=== PATIENT | female | born 1960 | race Caucasian/White ===

== ENCOUNTER 2016-10-09 14:58 | Outpatient (CLI) | payer OTHER | END 2016-10-09 15:00 | LOC: LABRHC 14:58 | PROVIDERS: ATTEND Physician Assistant | DX: L02.91 Cutaneous abscess, unspecified (principal) | CPT/HCPCS: 87070; 87186 ==

== ENCOUNTER 2017-04-06 10:46 | Outpatient (CLI) | payer OTHER ==
--- NOTE | 2017-04-09 12:56 | PAIN CLINIC PROGRESS NOTES ---
REASON FOR VISIT: I had the opportunity of following up with Garrett Birch today as an outpatient at [facility]. This is a 56-year-old white female who presents with back and bilateral leg pain. She was treated in 2016 for symptoms of both spinal stenosis and lumbar spondylosis primarily on the left side. She did very well following radiofrequency neurolysis and her back pain resolved for some time. She comes in today with new complaints of low back pain with symptoms radiating into both buttocks and posterior thigh and weakness in her legs. She says the pain is exacerbated by standing, walking, and weightbearing and completely resolved with sitting or lying down, consistent with neurogenic claudication. PHYSICAL EXAMINATION: On exam today, she does have a positive assisted extension and extension rotation finding. She has strength of 5/5 in the lower extremities. Dorsiflexion and plantar flexion of the feet are intact. There is a mildly positive bilateral straight leg raise which reproduces pain in each leg. Reflexes are 2+ and equal in patellar tendon and Achilles tendon. Gait is slightly antalgic. ASSESSMENT: 1. MRI-documented moderate to severe L4-L5 spinal stenosis, now with neurogenic claudication and back pain. 2. History of lumbar spondylosis, previously successfully treated with facet medial branch blocks and radiofrequency neurolysis. PLAN: As I think her symptoms are primarily consistent with neurogenic claudication and spinal stenosis, I have recommended a trial lumbar epidural steroid injection to begin with. She has apparently changed insurance products and will need to pre-authorization. I have offered her Tramadol for control of the symptoms in the interim. We will follow her up at her convenience next month. cc: Dr. Jitendra SHANKAR
== END 2017-04-06 10:47 ==
LOC: OUT 10:46
PROVIDERS: ATTEND Anesthesiology Pain Medicine
DX: M48.061 Spinal stenosis, lumbar region without neurogenic claudication (principal); M47.26 Other spondylosis with radiculopathy, lumbar region
CPT/HCPCS: 99213

== ENCOUNTER 2018-12-27 11:58 | Emergency (ER) | payer OTHER ==
[2018-12-27 12:04] VITALS: BP 119/77
--- NOTE | 2018-12-27 12:27 | ED Physician Documentation ---
Fall - HISTORIAN Historian: patient - HPI Stated Complaint: Fall Chief Complaint: Fall Additional Information: Patient presents to ED via EMS after falling. Patient states she tripped over uneven sidewalk at [facility], falling onto her left face and left side. She complains of left face and left lateral rib pain. She denies loss of consciousness. She is not on blood thinners. Patient has small skin tear to left elbow. Onset: just prior to arrival Where: other ([facility]) Context: tripped r: mild Associated Symptoms:: no loss of consciousness Location of Pain/Injury: face (left cheek), chest (left lateral), upper extremity (left elbow) Injury to Right Extremity: none Injury to Left Extremity: elbow (skin tear) - ROS CONST: no problems NEURO: denies: dizziness MS/SKIN/LYMPH: denies: weakness EYES/ENT: none CVS/RESP: none GI/: denies: nausea, vomiting - PAST HX Past History: none Allergies/Adverse Reactions: Allergies Allergy/AdvReac Type Severity Reaction Status Date / Time No Known Drug Allergies Allergy Verified 12/27/18 13:13 Home Medications: Ambulatory Orders Medication Instructions Recorded Methylprednisolone [Medrol] 4 mg PO DIRECTED #1 tab.ds.pk 12/27/18 - SOCIAL HX Smoking History: non-smoker Alcohol Use: none Drug Use: none - FAMILY HX Family History: none - VITAL SIGNS Vital Signs: Vital Signs Temp Pulse Resp BP Pulse Ox 98.2 F 70 15 119/77 97 12/27/18 11:58 12/27/18 11:58 12/27/18 11:58 12/27/18 11:58 12/27/18 11:58 - REVIEWED ASSESSMENTS Nursing Assessment Reviewed: Yes Vitals Reviewed: Yes Progress - Progress Progress: 1256 Patient now states her right hand is hurting. Declines pain medication at this time. ED Results Lab/Radiology - Radiology Radiology Impressions: Report Submission Date: Dec 27, 2018 1:06:46 PM CDT Patient Study Name: ARIELLA COLON Date: Dec 27, 2018 12:01:58 PM CDT Modality Type: DX Gender: F Description: FACIAL BONES 3 VIEWS OR MORE : 56 Institution: [facility] Physician: NICHOLAS JOHNSON Exam: Facial bones. History: Fall. [place], [place], Marv's and lateral projection of the facial bones are submitted. No signs of fracture or dislocation is identified. No nasal septal deviation is seen. No soft tissue abnormalities are identified. Impression: No bony abnormality is detected on this study. Electronically signed on Dec 27, 2018 1:06:46 PM CDT by: Marcin Acevedo Report Submission Date: Dec 27, 2018 1:07:53 PM CDT Patient Study Name: ARIELLA COLON Date: Dec 27, 2018 12:01:58 PM CDT Modality Type: DX Gender: F Description: RIBS UNILAT 2 VIEWS : 56 Institution: [facility] Physician: NICHOLAS JOHNSON Exam: Left ribs. History: Fall. AP and oblique views of the left hemithorax are submitted. No signs of fracture or dislocation is seen. No pleural or periosteal reaction is seen. No pneumothorax is identified. Impression: No bony abnormality to the left hemithorax is identified. Electronically signed on Dec 27, 2018 1:07:53 PM CDT by: Marcin Acevedo Report Submission Date: Dec 27, 2018 1:16:29 PM CDT Patient Study Name: ARIELLA COLON Date: Dec 27, 2018 12:44:01 PM CDT Modality Type: DX Gender: F Description: HAND 3 VIEWS OR MORE : 56 Institution: [facility] Physician: NICHOLAS JOHNSON Examination: Plain film right hand History: RIGHT HAND PAIN AFTER FALL Comparison exams: None available Findings: 3 views of the right hand demonstrates osteopenia. Articular degenerative changes. No fracture. No dislocation. No soft tissue abnormality. Impression: Osteopenia and degenerative changes. No acute appearing osseous abnormality Electronically signed on Dec 27, 2018 1:16:29 PM CDT by: Ming Rudd - Orders Orders: ED Orders Category Date Time Status FACIAL BONES 3 VIEWS OR MORE [RAD] Stat Exams 12/27/18 Ordered RIBS UNILAT 2 VIEWS [RAD] Stat Exams 12/27/18 Ordered Fall Physical Exam - Physical Exam General Appearance: no acute distress, alert Head: non-tender Neck: non-tender, painless ROM Eye: SERA, other (left cheek swelling) ENT: no dental injury Resp/CVS: chest non-tender, breath sounds nml Abdomen: soft, normal bowel sounds Neuro: oriented x3, sensation nml, motor nml, mood/affect nml Skin: color nml, no rash Back: normal inspection, no vertebral tenderness Extremities: atraumatic, pelvis stable Joint: nml ROM - [place] Coma Score Eyes Open: Spontaneous Speech: Oriented Motor: Obeys Commands Discharge Clincal Impression: Musculoskeletal pain Fall from standing Qualifiers: Encounter type: initial encounter Qualified Code(s): W19.XXXA - Unspecified fall, initial encounter Referrals: Jitendra Bolden MD [Primary Care Provider] - 2 Days Additional Instructions: 1. Tylenol 650mg every 4 hours as needed for pain 2. Take Medrol dose pack as directed 3. Apply heat or ice to affected areas as needed for comfort 4. Apply triple antibiotic ointment to skin abrasions twice daily until healed. 5. Follow up with PCP within 1 week 6. Return to ER for new or worsening symptoms Condition: Stable Disposition: 01 HOME, SELF-CARE Decision to Admit: NO Date of Decison to Admit: 12/27/18 Decision Time: 13:13
--- NOTE | 2018-12-27 13:10 | Diagnostic Imaging Report ---
PATIENT MR#: [id number] PATIENT PATIENT NAME: ARIELLA COLON DATE OF : 1960 REFERRING PHYSICIAN: Yue Fraser EXAM DATE: 12/27/2018 ACCESSION NUMBER: [id number] EXAM DESCRIPTION: FACIAL BONES 3 VIEWS OR MORE Exam: Facial bones. History: Fall. White, [place], Marv's and lateral projection of the facial bones are submitted. No signs of fracture o r dislocation is identified. No nasal septal deviation is seen. No soft tissue abnormalities are identified. Impression: No bony abnormality is detected on this study. Read by: Dr. Marcin Whittington Transcribed by: Transcribed Date: Electronically signed by: Dr. Marcin Whittington Date signed: 12/27/2018 1:09:31 PM
--- NOTE | 2018-12-27 13:11 | Diagnostic Imaging Report ---
PATIENT MR#: [id number] PATIENT PATIENT NAME: ARIELLA COLON DATE OF : 1960 REFERRING PHYSICIAN: Yue Fraser EXAM DATE: 12/27/2018 ACCESSION NUMBER: [id number] EXAM DESCRIPTION: RIBS UNILAT 2 VIEWS Exam: Left ribs. History: Fall. AP and oblique views of the left hemithorax are submitted. No signs of fracture or dislocation is se en. No pleural or periosteal reaction is seen. No pneumothorax is identified. Impression: No bony abnormality to the left hemithorax is identified. Read by: Dr. Marcin Whittington Transcribed by: Transcribed Date: Electronically signed by: Dr. Marcin Whittington Date signed: 12/27/2018 1:10:30 PM
--- NOTE | 2018-12-27 13:20 | Diagnostic Imaging Report ---
PATIENT MR#: [id number] PATIENT PATIENT NAME: ARIELLA COLON DATE OF : 1960 REFERRING PHYSICIAN: Yue Fraser EXAM DATE: 12/27/2018 ACCESSION NUMBER: [id number] EXAM DESCRIPTION: HAND 3 VIEWS OR MORE Examination: Plain film right hand History: RIGHT HAND PAIN AFTER FALL Comparison exams: None available Findings: 3 views of the right hand demonstrates osteopenia. Articular degenerative changes. No fract ure. No dislocation. No soft tissue abnormality. Impression: Osteopenia and degenerative changes. No acute appearing osseous abnormality Read by: Dr. Ming Rudd Transcribed by: Transcribed Date: Electronically signed by: Dr. Ming Rudd Date signed: 12/27/2018 1:19:30 PM
== END 2018-12-27 13:25 | disposition home or self-care (01) ==
LOC: ED 11:58
DX: M79.18 Myalgia, other site (principal); W01.198A Fall on same level from slipping, tripping and stumbling with subsequent striking against other object, initial encounter; Y92.480 Sidewalk as the place of occurrence of the external cause; Y99.8 Other external cause status
CPT/HCPCS: 70150; 71100; 73130; 99283; 99284